=== PATIENT | male | born 1985 | race Caucasian/White ===

== ENCOUNTER 2016-05-04 21:19 | Emergency (ER) | payer MEDICAID ==
[2016-05-04] MEDS ORDERED: ACETAMINOPHEN 325 MG TABLET PO STA (23:42)
[2016-05-04] MEDS ORDERED: DEXAMETHASONE 10 MG/ML VIAL PO STA (23:42)
[2016-05-04] MEDS ORDERED: HYDROcod/ACET 5/325 Prepack 6 PO ONE ×2 (23:42→23:46)
[2016-05-04] MEDS ORDERED: DEXAMETHASONE 10 MG/ML VIAL ONE (23:46)
[2016-05-04] MEDS ORDERED: ACETAMINOPHEN 325 MG TABLET PO ONE (23:47)
== END 2016-05-05 00:11 | disposition home or self-care (01) ==
DX: M25.511 Pain in right shoulder (principal)
CPT/HCPCS: 93005; 93010; 99283; A9270

== ENCOUNTER 2016-07-04 14:03 | Outpatient (CLI) | payer MEDICAID | END 2016-07-04 23:59 | disposition home or self-care (01) | DX: R12 Heartburn (principal) ==

== ENCOUNTER 2016-07-26 17:02 | Outpatient (CLI) | payer MEDICAID ==
--- NOTE | 2016-07-27 09:54 | XRAY Report ---
TWO-VIEW CHEST: 07/26/2016 CLINICAL INDICATION: Chronic cough. COMPARISON: 07/03/2014 FINDINGS: Frontal and lateral views of the chest demonstrate a normal cardiac silhouette. The lungs are clear. No effusion or pneumothorax is present. IMPRESSION: NORMAL CHEST, UNCHANGED. JOB #: [id number] EXT JOB #:[id number]
== END 2016-07-26 17:03 | disposition home or self-care (01) ==
LOC: DI 17:02
PROVIDERS: ATTEND Family Medicine
DX: R05 Cough (principal)
CPT/HCPCS: 71020

== ENCOUNTER 2016-09-20 08:00 | Outpatient (CLI) | payer MEDICAID ==
[2016-09-20 19:07] LABS: BILIRUBIN,TOTAL 0.7 mg/dL (0.2-1.0); CALCIUM 9.7 mg/dL (8.5-10.3); CREATININE 0.9 mg/dL (0.6-1.2); TOTAL PROTEIN 7.7 g/dL (6.7-8.2)
== END 2016-09-20 08:01 | disposition home or self-care (01) ==
LOC: LAB.N 08:00
PROVIDERS: ATTEND Family Medicine
DX: K75.9 Inflammatory liver disease, unspecified (principal)
CPT/HCPCS: 36415; 80053

== ENCOUNTER 2016-09-28 20:03 | Outpatient (CLI) | payer MEDICAID ==
--- NOTE | 2016-09-29 12:17 | Ultrasound Report ---
RIGHT UPPER QUADRANT ULTRASOUND: 09/28/2016 CLINICAL INDICATION: Abnormal liver enzymes. TECHNIQUE: Real-time scanning was performed with traveling sales representative static images obtained. FINDINGS: The liver measures 20.3 cm. Hepatic echogenicity is diffusely increased. No focal parenc hymal lesion or intrahepatic biliary dilatation is seen. The common bile duct measures 3 mm. The ga llbladder is normal. The right kidney measures 12.7 cm, and demonstrates no hydronephrosis. No free fluid is seen. IMPRESSION: ECHOGENIC LIVER, COMPATIBLE WITH FATTY INFILTRATION. NO EVIDENCE OF CHOLELITHIASIS OR B ILIARY OBSTRUCTION. JOB #: [id number] EXT JOB #:[id number]
== END 2016-09-28 20:04 | disposition home or self-care (01) ==
LOC: DI 20:03
PROVIDERS: ATTEND Family Medicine
DX: R74.0 Nonspecific elevation of levels of transaminase and lactic acid dehydrogenase [LDH] (principal)
CPT/HCPCS: 76705

== ENCOUNTER 2017-06-06 14:55 | Outpatient (CLI) | payer MEDICAID ==
[2017-06-06 19:40] LABS: ALBUMIN 3.8 g/dL (3.2-5.5); BILIRUBIN,TOTAL 0.5 mg/dL (0.2-1.0); CALCIUM 9.5 mg/dL (8.5-10.3); CREATININE 0.7 mg/dL (0.6-1.2); TOTAL PROTEIN 7.7 g/dL (6.7-8.2)
[2017-06-07 13:43] LABS: HEPATITIS B SURFACE ANTIGEN NON-REACTIVE (NON-REACTIVE)
[2017-06-07 15:37] LABS: HEPATITIS C ANTIBODY NON-REACTIVE (NON-REACTIVE)
== END 2017-06-06 14:56 | disposition home or self-care (01) ==
LOC: LAB.N 14:55
PROVIDERS: ATTEND Family Medicine
DX: K76.0 Fatty (change of) liver, not elsewhere classified (principal); R74.0 Nonspecific elevation of levels of transaminase and lactic acid dehydrogenase [LDH]
CPT/HCPCS: 36415; 80053; 82728; 83540; 84466; 86317; 86704; 86709; 86803; 87340

== ENCOUNTER 2017-07-30 08:00 | Outpatient (CLI) | payer MEDICAID ==
[2017-07-30 13:13] LABS: CALCIUM 9.2 mg/dL (8.5-10.3)
[2017-07-30 13:29] LABS: HB2 TOTAL 16.1 g/dL; HEMOGLOBIN A1C 0.73 g/dL; HEMOGLOBIN A1C % 6.3 % (4.6-6.2)
== END 2017-07-30 08:01 ==
LOC: LAB.N 08:00
PROVIDERS: ATTEND Family Medicine
DX: E11.9 Type 2 diabetes mellitus without complications (principal)
CPT/HCPCS: 36415; 80048; 83036

== ENCOUNTER 2017-09-05 08:00 | Outpatient (CLI) | payer MEDICAID ==
[2017-09-05 12:31] LABS: BASOPHILS % (AUTO) 0.4 %; EOSINOPHILS # (AUTO) 0.2 10^3/uL (0.0-0.7); EOSINOPHILS % (AUTO) 1.9 %; HGB - HEMOGLOBIN 13.7 g/dL (14.0-18.0); LYMPHOCYTES # (AUTO) 2.7 10^3/uL (1.5-3.5); LYMPHOCYTES % (AUTO) 30.9 %; MEAN CORPUSCULAR HEMOGLOBIN 29.2 pg (27.0-31.0); MEAN CORPUSCULAR HGB CONC 33.6 g/dL (32.0-36.0); MEAN PLATELET VOLUME 9.6 fL (7.4-11.4); MONOCYTES # (AUTO) 0.7 10^3/uL (0.0-1.0); MONOCYTES % (AUTO) 8.3 %; NEUTROPHILS # (AUTO) 5.1 10^3/uL (1.5-6.6); NEUTROPHILS % (AUTO) 58.5 %; PLT - PLATELET COUNT 291 10^3/uL (130-450); RED BLOOD COUNT 4.68 10^6/uL (4.70-6.10); RED CELL DISTRIBUTION WIDTH 14.3 % (12.0-15.0); WHITE BLOOD COUNT 8.6 x10^3/uL (4.8-10.8)
[2017-09-05 12:35] LABS: ALBUMIN 3.8 g/dL (3.2-5.5); ALBUMIN/GLOBULIN RATIO 1.1 (1.0-2.2); BILIRUBIN,TOTAL 0.6 mg/dL (0.2-1.0); CALCIUM 9.8 mg/dL (8.5-10.3); CREATININE 0.9 mg/dL (0.6-1.2); TOTAL PROTEIN 7.4 g/dL (6.7-8.2)
== END 2017-09-05 08:01 ==
LOC: LAB.N 08:00
PROVIDERS: ATTEND Family Medicine
DX: K57.32 Diverticulitis of large intestine without perforation or abscess without bleeding (principal); R19.7 Diarrhea, unspecified
CPT/HCPCS: 36415; 80053; 83690; 85025; 85651

== ENCOUNTER 2017-09-06 12:16 | Outpatient (CLI) | payer MEDICAID ==
--- NOTE | 2017-09-06 13:51 | CT Report ---
Procedure Date: 09/06/2017 Accession Number: [id number] / [id number] Procedure: CT - Abdomen/Pelvis W/O CPT Code: FULL RESULT: EXAM: CT ABDOMEN AND PELVIS EXAM DATE: 09/06/2017 12:29 PM. CLINICAL HISTORY: Abdominal pain, diverticulitis, colon, diarrhea. COMPARISONS: Noncontrast CT abdomen and pelvis 09/08/2015. TECHNIQUE: Routine helical CT imaging was performed through the abdomen and pelvis. IV contrast: None. Enteric contrast: No. Reconstructions: Coronal and sagittal. In accordance with CT protocol optimization, one or more of the following dose reduction techniques were utilized for this exam: automated exposure control, adjustment of mA and/or KV based on patient size, or use of iterative reconstructive technique. FINDINGS: Lung Bases: Stable, essentially clear. Liver: Prominent right lobe 20 cm in height as before. No focal abnormality evident. Gallbladder/Bile Ducts: No calcified gallstone, gallbladder wall thickening, or obvious ductal dilatation. Spleen: Mild splenomegaly, 14.4 cm in length compared to 13.8 cm previously. No focal lesion identified. Pancreas: Grossly unremarkable. Adrenal Glands: No nodule. Kidneys: Unremarkable. No hydronephrosis, stones, or focal abnormality identified. Peritoneal Cavity/Bowel: No dilatation or acute findings of the nonopacified bowel. No gross abnormality of terminal ileum. Surgical changes of distal sigmoid with stable modest adjacent fat stranding. Relatively contracted sigmoid and rectosigmoid colon with limited detail. Diverticulosis. No convincing acute diverticulitis. Normal appendix. Small supraumbilical ventral hernia, 2 x 3 x 3.2 cm, contains a tuft of small bowel, without evidence of obstruction. Hernia neck 3 cm. A smaller fat-containing midline ventral hernia more superiorly. Retroperitoneum: Stable subcentimeter aortocaval nodes. No mass or sobeida adenopathy. Pelvic Organs: Moderately contracted bladder and tiny urachal remnant. No focal lesion identified. Normal size prostate. No adenopathy evident. Vasculature: No aneurysm. Bones: Stable. Mild degenerative changes of the spine. IMPRESSION: 1. No acute inflammatory or obstructive process identified. 2. Colonic diverticulosis. No convincing acute diverticulitis. Postsurgical changes of distal sigmoid. Limited detail of the contracted rectosigmoid colon. 3. Small ventral hernias, one of which contains small bowel just above the umbilicus. RADIA
== END 2017-09-06 12:17 | disposition home or self-care (01) ==
LOC: DI 12:16
PROVIDERS: ATTEND Family Medicine
DX: K57.30 Diverticulosis of large intestine without perforation or abscess without bleeding (principal); K43.9 Ventral hernia without obstruction or gangrene
CPT/HCPCS: 74176

== ENCOUNTER 2019-05-07 11:02 | Emergency (ER) | payer MEDICAID ==
[2019-05-07 11:58] LABS: BASOPHILS % (AUTO) 0.2 %; EOSINOPHILS # (AUTO) 0.1 10^3/uL (0.0-0.7); EOSINOPHILS % (AUTO) 1.3 %; HGB - HEMOGLOBIN 15.5 g/dL (14.0-18.0); LYMPHOCYTES # (AUTO) 2.1 10^3/uL (1.5-3.5); LYMPHOCYTES % (AUTO) 25.6 %; MEAN CORPUSCULAR HEMOGLOBIN 29.6 pg (27.0-31.0); MEAN CORPUSCULAR HGB CONC 33.6 g/dL (32.0-36.0); MEAN CORPUSCULAR VOLUME 88.1 fL (80.0-94.0); MEAN PLATELET VOLUME 10.1 fL (7.4-11.4); MONOCYTES # (AUTO) 0.6 10^3/uL (0.0-1.0); MONOCYTES % (AUTO) 7.5 %; NEUTROPHILS # (AUTO) 5.3 10^3/uL (1.5-6.6); NEUTROPHILS % (AUTO) 64.9 %; PLT - PLATELET COUNT 280 10^3/uL (130-450); RED BLOOD COUNT 5.23 10^6/uL (4.70-6.10); RED CELL DISTRIBUTION WIDTH 13.2 % (12.0-15.0); WHITE BLOOD COUNT 8.2 x10^3/uL (4.8-10.8)
[2019-05-07 12:11] LABS: ALBUMIN 4.3 g/dL (3.2-5.5); ALBUMIN/GLOBULIN RATIO 1.1 (1.0-2.2); BILIRUBIN,TOTAL 0.8 mg/dL (0.2-1.0); CALCIUM 9.8 mg/dL (8.5-10.3); TOTAL PROTEIN 8.1 g/dL (6.7-8.2)
[2019-05-07 13:32] LABS: GLUCOSE, URINE (UA) NEGATIVE (NEGATIVE); KETONES,URINE (UA) TRACE mg/dL (NEGATIVE); LEUKOCYTE ESTERASE, URINE NEGATIVE (NEGATIVE); NITRITE,URINE NEGATIVE (NEGATIVE); OCCULT BLOOD,URINE NEGATIVE (NEGATIVE); PROTEIN,URINE TRACE mg/dL (NEGATIVE); UROBILINOGEN,URINE 0.2 (NORMAL) E.U./dL (NORMAL)
--- NOTE | 2019-05-07 13:35 | ED Physician Documentation ---
PD HPI ABD PAIN - Stated complaint Stated Complaint: ABD PX - Chief complaint Chief Complaint: Abd Pain - History obtained from History obtained from: Patient - History of Present Illness Timing - onset: How many months ago (has noted LUQ pain intermittently for 5 months, will have sharp pain mainly when lying on left side, and improved if turns to right. Has it at times with bending or lifting. No pain with breathing. No noted change with eating nor BMs. Has had regular BMs mainly, with some constipation the past several days. Pain today was consistent in same place and not improved with position/ROM.) Timing - duration: Days (current consistent pain today; has had it intermittent for 5 months) Timing - details: Gradual onset, Still present Quality: Cramping, Sharp, Pain Location: LUQ Associated symptoms: Constipation (the past several days). No: Fever, Nausea, Vomiting, Diarrhea Similar symptoms before: Has not had sx before (had had diverticulitis with perforation and colectomy, with colostomy that was then reversed. Has had normal BMs and diet. Just the past few months has had pain as noted above intermittently.), Other (has umbilical hernia that reduces and is not tender) Recently seen: Not recently seen Review of Systems Constitutional: denies: Fever, Chills, Myalgias Nose: denies: Rhinorrhea / runny nose, Congestion Throat: denies: Sore throat Respiratory: denies: Cough GI: reports: Abdominal Pain, Constipation. denies: Nausea, Vomiting, Diarrhea, Bloody / black stool : denies: Dysuria, Frequency, Hematuria Skin: denies: Rash PD PAST MEDICAL HISTORY - Past Medical History Cardiovascular: None, Other Respiratory: None Endocrine/Autoimmune: None GI: Chronic constipation, Diverticulitis, Other : Frequency HEENT: None Psych: Depression, Anxiety Musculoskeletal: None Derm: None Other Past Medical History: Patient reports having "pre diabetes" - Past Surgical History Past Surgical History: Yes General: Bowel surgery, Colonoscopy, Other HEENT: Tonsil/Adenoidectomy - Present Medications Home Medications: Ambulatory Orders Medication Instructions Recorded Confirmed Omeprazole [PriLOSEC] 20 mg PO DAILY PRN 12/05/13 07/03/14 Bupropion HCl [Wellbutrin] 100 mg PO BID 07/01/14 07/03/14 Cholecalciferol (Vitamin D3) 2,000 unit PO DAILY 07/01/14 07/03/14 [Vitamin D] Fluoxetine HCl [Prozac] 20 mg PO DAILY 07/01/14 07/03/14 L.acidoph,Paracasei, B.lactis 1 each PO DAILY 07/01/14 07/03/14 [Probiotic] Multivitamin [Multivitamins] 1 each PO DAILY 07/01/14 07/03/14 Ubidecarenone [Coq-10] 100 mg PO DAILY 07/01/14 07/03/14 Alprazolam [Xanax] 1 tab PO ONCE 07/03/14 07/03/14 Docusate Sodium 100 mg PO DAILY #30 capsule 05/07/19 Naproxen 500 mg PO BID #20 tablet 05/07/19 - Allergies Allergies/Adverse Reactions: Allergies Allergy/AdvReac Type Severity Reaction Status Date / Time banana [Banana] Allergy Severe Swelling Verified 05/07/19 11:13 to mouth amoxicillin [Amoxicillin] Allergy Unknown Unknown Verified 05/07/19 11:13 Penicillins Allergy Unknown Unknown Verified 05/07/19 11:13 ciprofloxacin [From Cipro] AdvReac Intermediate Redness Verified 05/07/19 11:13 ranitidine AdvReac Intermediate Head Verified 05/07/19 11:13 tingling, dizzieness - Social History Does the pt smoke?: No Smoking Status: Never smoker Does the pt drink ETOH?: No Does the pt have substance abuse?: No - Immunizations Immunizations are current?: Yes - POLST Patient has POLST: No PD ED PE NORMAL - Vitals Vital signs reviewed: Yes - General General: Alert and oriented X 3, No acute distress, Well developed/nourished - HEENT HEENT: Pharynx benign - Neck Neck: Supple, no meningeal sign, No adenopathy - Cardiac Cardiac: RRR, No murmur - Respiratory Respiratory: Clear bilaterally - Abdomen Abdomen: Normal bowel sounds, Soft, Non distended, No organomegaly, Other (tender locally LUQ to left mid abd without percusssion nor rebound tenderness. Noted umbilical hernia that is soft and reducible, without tenderness. ) - Male Male : Deferred - Rectal Rectal: Deferred - Back Back: No CVA TTP, No spinal TTP - Derm Derm: Normal color, No rash - Neuro Neuro: Alert and oriented X 3, No motor deficit Results - Vitals Vitals: Vital Signs - 24 hr 05/07/19 05/07/19 13:13 16:32 Temperature 36.5 C Heart Rate 90 84 Respiratory 18 17 Rate Blood Pressure 151/98 H 144/88 H O2 Saturation 97 99 Oxygen O2 Source [With Activity] Room air O2 Source Room air - Labs Labs: Laboratory Tests 05/07/19 05/07/19 05/07/19 11:53 11:53 11:53 WBC 8.2 RBC 5.23 Hgb 15.5 Hct 46.1 MCV 88.1 MCH 29.6 MCHC 33.6 RDW 13.2 Plt Count 280 MPV 10.1 Neut # (Auto) 5.3 Lymph # (Auto) 2.1 Barnes # (Auto) 0.6 Eos # (Auto) 0.1 Baso # (Auto) 0.0 Absolute Nucleated RBC 0.00 Nucleated RBC % 0.0 ESR 9 Sodium 138 Potassium 4.3 Chloride 99 L Carbon Dioxide 27 Anion Gap 12.0 BUN 16 Creatinine 1.0 Estimated GFR (MDRD) 85 L Glucose 145 H Calcium 9.8 Total Bilirubin 0.8 AST 53 H ALT 101 H Alkaline Phosphatase 41 L Total Protein 8.1 Albumin 4.3 Globulin 3.8 Albumin/Globulin Ratio 1.1 Lipase 30 Urine Color Urine Clarity Urine pH Ur Specific [place] Urine Protein Urine Glucose (UA) Urine Ketones Urine Occult Blood Urine Nitrite Urine Bilirubin Urine Urobilinogen Ur Leukocyte Esterase Ur Microscopic Review Urine Culture Comments 05/07/19 13:22 WBC RBC Hgb Hct MCV MCH MCHC RDW Plt Count MPV Neut # (Auto) Lymph # (Auto) Barnes # (Auto) Eos # (Auto) Baso # (Auto) Absolute Nucleated RBC Nucleated RBC % ESR Sodium Potassium Chloride Carbon Dioxide Anion Gap BUN Creatinine Estimated GFR (MDRD) Glucose Calcium Total Bilirubin AST ALT Alkaline Phosphatase Total Protein Albumin Globulin Albumin/Globulin Ratio Lipase Urine Color DARK YELLOW Urine Clarity CLEAR Urine pH 6.0 Ur Specific [place] >=1.030 H Urine Protein TRACE Urine Glucose (UA) NEGATIVE Urine Ketones TRACE Urine Occult Blood NEGATIVE Urine Nitrite NEGATIVE Urine Bilirubin NEGATIVE Urine Urobilinogen 0.2 (NORMAL) Ur Leukocyte Esterase NEGATIVE Ur Microscopic Review NOT INDICATED Urine Culture Comments NOT INDICATED - Rads (name of study) abd CT Radiology: Prelim report reviewed (no acute process), See rad report PD MEDICAL DECISION MAKING - ED course Complexity details: reviewed results (CT appears normal. Consider some adhesions/scar tissue with positional tractioning causing the positional pain over the past few months, and could be steady/enhanced with current constipation. Not sure of other explanation at this time. ), re-evaluated patient, considered differential, d/w patient Departure - Departure Disposition: 01 Home, Self Care Clinical Impression: Left sided abdominal pain Condition: Stable Record reviewed to determine appropriate education?: Yes Instructions: ED Abdominal Pain Unkn Cause Follow-Up: MAVERICK LLANES MD [Primary Care Provider] - Prescriptions: Docusate Sodium 100 mg PO DAILY #30 capsule Naproxen 500 mg PO BID #20 tablet Comments: Stay well-hydrated. Use naproxen anti-inflammatory twice daily for the next 7 to 10 days. Also docusate stool softener twice daily for the first few days and then daily after that for regular bowel movements. Add Tylenol 650 mg every 4-6 hours if needed for pain still. Your labs and CT scan did not show any acute process or obvious answer to the cause of your pain. Considerations would be some adhesions or scar tissue from prior surgery being irritated by movement and potentially by some element of constipation. Recheck if not improved well over the next several days and return sooner if worsening or other symptoms develop Discharge Date/Time: 05/07/19 16:37
[2019-05-07 13:38] LABS: BILIRUBIN,URINE NEGATIVE (NEGATIVE); CLARITY,URINE CLEAR (CLEAR); ICTOTEST,URINE NEGATIVE
[2019-05-07] MEDS ORDERED: IOVERSOL 320 100 ML VIAL IVP ONE ×2 (14:33→16:33)
--- NOTE | 2019-05-07 16:04 | CT Report ---
Reason: left upper abd pain Procedure Date: 05/07/2019 Accession Number: [id number] / [id number] Procedure: CT - Abdomen/Pelvis W CPT Code: Final Report FULL RESULT: EXAM: CT ABDOMEN AND PELVIS EXAM DATE: 05/07/2019 03:43 PM. CLINICAL HISTORY: Left upper quadrant abdominal pain. COMPARISONS: ABDOMEN/PELVIS W/O 09/06/2017 12:29 PM. TECHNIQUE: Routine helical CT imaging was performed through the abdomen and pelvis. IV contrast: 100 mL of OPTIRAY 320. Enteric contrast: No. Reconstructions: Coronal and sagittal. In accordance with CT protocol optimization, one or more of the following dose reduction techniques were utilized for this exam: automated exposure control, adjustment of mA and/or KV based on patient size, or use of iterative reconstructive technique. FINDINGS: Lung Bases: Lung bases are clear and the heart size is normal. No pleural or pericardial effusion. Liver: Unremarkable. Gallbladder/Bile Ducts: Unremarkable. Spleen: Normal. Pancreas: Normal. Adrenal Glands: Normal. Kidneys: Normal. No masses or hydronephrosis. Peritoneal Cavity/Bowel: Surgical anastomotic sutures at the rectosigmoid junction. Colonic diverticulosis without diverticulitis. The remainder of the intra-abdominal gastrointestinal tract is unremarkable. No ascites, free air or adenopathy. The appendix is well visualized and normal. Pelvic Organs: Normal. The bladder and visualized pelvic organs are within normal limits. Vasculature: No aneurysms or other significant abnormality. Bones: Benign bone island in the T8 vertebral body. Mild multilevel thoracic and lumbar spondylosis. Benign bone island in the right acetabulum. Other: Umbilical and supraumbilical ventral hernias containing loops of small bowel and mesenteric fat. No incarceration. IMPRESSION: 1. No acute inflammatory process in the abdomen or pelvis. 2. Status post partial sigmoid colon resection with surgical anastomosis at the rectosigmoid junction. 3. Colonic diverticulosis without diverticulitis. 4. Umbilical and supraumbilical ventral hernias containing loops of small bowel and mesenteric fat. No bowel obstruction or incarceration. RADIA
[2019-05-07] MEDS ORDERED: KETOROLAC 30 MG/ML VIAL IVP STA (16:16)
[2019-05-07] MEDS ORDERED: DOCUSATE SODIUM 100 MG CAPSULE PO STA (16:16)
[2019-05-07 16:34] VITALS: BP 144/88
== END 2019-05-07 16:37 | disposition home or self-care (01) ==
LOC: ED 11:02
DX: R10.9 Unspecified abdominal pain (principal)
CPT/HCPCS: 36415; 74177; 80053; 81003; 83690; 85025; 85651; 96374; 99284; A9270; Q9967; 81001; 87086

== ENCOUNTER 2019-05-22 14:10 | Outpatient (CLI) | payer MEDICAID ==
[2019-05-22 18:50] LABS: BASOPHILS % (AUTO) 0.4 %; EOSINOPHILS # (AUTO) 0.1 10^3/uL (0.0-0.7); EOSINOPHILS % (AUTO) 1.1 %; HGB - HEMOGLOBIN 14.8 g/dL (14.0-18.0); LYMPHOCYTES # (AUTO) 1.8 10^3/uL (1.5-3.5); LYMPHOCYTES % (AUTO) 21.1 %; MEAN CORPUSCULAR HEMOGLOBIN 29.7 pg (27.0-31.0); MEAN CORPUSCULAR VOLUME 89.8 fL (80.0-94.0); MEAN PLATELET VOLUME 10.6 fL (7.4-11.4); MONOCYTES # (AUTO) 0.6 10^3/uL (0.0-1.0); MONOCYTES % (AUTO) 6.5 %; NEUTROPHILS % (AUTO) 70.5 %; PLT - PLATELET COUNT 292 10^3/uL (130-450); RED BLOOD COUNT 4.99 10^6/uL (4.70-6.10); RED CELL DISTRIBUTION WIDTH 13.5 % (12.0-15.0); WHITE BLOOD COUNT 8.6 x10^3/uL (4.8-10.8)
[2019-05-22 19:24] LABS: HB2 TOTAL 15.5 g/dL; HEMOGLOBIN A1C 0.79 g/dL; HEMOGLOBIN A1C % 6.8 % (4.6-6.2)
[2019-05-22 19:26] LABS: ALBUMIN 4.3 g/dL (3.2-5.5); ALBUMIN/GLOBULIN RATIO 1.2 (1.0-2.2); BILIRUBIN,TOTAL 0.9 mg/dL (0.2-1.0); CALCIUM 9.3 mg/dL (8.5-10.3); CREATININE 0.7 mg/dL (0.6-1.2); TOTAL PROTEIN 7.9 g/dL (6.7-8.2)
== END 2019-05-22 23:59 | disposition home or self-care (01) ==
LOC: LAB.N 14:10
PROVIDERS: ATTEND Physician Assistant Medical
DX: R07.9 Chest pain, unspecified (principal); E11.9 Type 2 diabetes mellitus without complications
CPT/HCPCS: 36415; 80053; 82306; 83036; 83880; 84443; 85025

== ENCOUNTER 2019-05-22 14:18 | Outpatient (CLI) | payer MEDICAID ==
--- NOTE | 2019-05-22 16:11 | XRAY Report ---
Reason: CHEST PAIN, ETIOLOGY UNDEFINED Procedure Date: 05/22/2019 Accession Number: [id number] / [id number] Procedure: XRN - Chest 2 View X-Ray CPT Code: 85691 Final Report FULL RESULT: EXAM: CHEST RADIOGRAPHY EXAM DATE: 05/22/2019 02:37 PM. CLINICAL HISTORY: CHEST PAIN, ETIOLOGY UNDEFINED. COMPARISON: CHEST 2 VIEW PA/LAT 07/26/2016 5:06 PM. TECHNIQUE: 2 views. FINDINGS: Lungs/Pleura: No focal opacities evident. No pleural effusion. No pneumothorax. Normal volumes. Mediastinum: Heart and mediastinal contours are unremarkable. Other: None. IMPRESSION: Normal 2-view chest radiography. RADIA
== END 2019-05-22 14:19 | disposition home or self-care (01) ==
LOC: DI.N 14:18
PROVIDERS: ATTEND Physician Assistant Medical
DX: R07.9 Chest pain, unspecified (principal); E11.9 Type 2 diabetes mellitus without complications
CPT/HCPCS: 36415; 71046; 80053; 82306; 83036; 83880; 84443; 85025

== ENCOUNTER 2020-01-21 10:13 | Emergency (ER) | payer MEDICAID ==
--- NOTE | 2020-01-21 10:28 | ED Physician Documentation ---
PD HPI CHEST PAIN - Stated complaint Stated Complaint: CHEST PX - History obtained from History obtained from: Patient - Additional information Additional information: 34-year-old gentleman with history of abdominal surgeries, but no history of heart or lung problems presents with pain that started in his chest last night. It is focal near the upper left side of his breast, nonradiating. Feels like to dull pencils poking him. Its been fairly constant. No shortness of breath, nausea, pedal edema, calf pain, sweats with it. Family history is notable for coronary disease but in elderly people, nobody under the age of 50. Review of Systems Ten Systems: 10 systems reviewed and negative Constitutional: reports: Reviewed and negative Nose: reports: Reviewed and negative Cardiac: reports: Chest pain / pressure. denies: Palpitations Respiratory: denies: Dyspnea, Cough PD PAST MEDICAL HISTORY - Past Medical History Cardiovascular: None, Other Respiratory: None Endocrine/Autoimmune: None GI: Chronic constipation, Diverticulitis, Other : Frequency HEENT: None Psych: Depression, Anxiety Musculoskeletal: None Derm: None - Past Surgical History Past Surgical History: Yes General: Bowel surgery, Colonoscopy, Other HEENT: Tonsil/Adenoidectomy - Present Medications Home Medications: Ambulatory Orders Medication Instructions Recorded Confirmed Omeprazole [PriLOSEC] 20 mg PO DAILY PRN 12/05/13 07/03/14 Bupropion HCl [Wellbutrin] 100 mg PO BID 07/01/14 07/03/14 Cholecalciferol (Vitamin D3) 2,000 unit PO DAILY 07/01/14 07/03/14 [Vitamin D] Fluoxetine HCl [Prozac] 20 mg PO DAILY 07/01/14 07/03/14 L.acidoph,Paracasei, B.lactis 1 each PO DAILY 07/01/14 07/03/14 [Probiotic] Multivitamin [Multivitamins] 1 each PO DAILY 07/01/14 07/03/14 Ubidecarenone [Coq-10] 100 mg PO DAILY 07/01/14 07/03/14 Alprazolam [Xanax] 1 tab PO ONCE 07/03/14 07/03/14 Docusate Sodium 100 mg PO DAILY #30 capsule 05/07/19 Naproxen 500 mg PO BID #20 tablet 05/07/19 - Allergies Allergies/Adverse Reactions: Allergies Allergy/AdvReac Type Severity Reaction Status Date / Time banana [Banana] Allergy Severe Swelling Verified 01/21/20 10:25 to mouth amoxicillin [Amoxicillin] Allergy Unknown Unknown Verified 01/21/20 10:25 Penicillins Allergy Unknown Unknown Verified 01/21/20 10:25 ciprofloxacin [From Cipro] AdvReac Intermediate Redness Verified 01/21/20 10:25 ranitidine AdvReac Intermediate Head Verified 01/21/20 10:25 tingling, dizzieness - Social History Does the pt smoke?: No Smoking Status: Never smoker Does the pt drink ETOH?: No Does the pt have substance abuse?: No - Immunizations Immunizations are current?: Yes - POLST Patient has POLST: No PD ED PE NORMAL - Vitals Vital signs reviewed: Yes (He is tachycardic but he says his heart rate is always fast.) - General General: Alert and oriented X 3, No acute distress - HEENT HEENT: PERRL, EOMI - Neck Neck: Supple, no meningeal sign, No bony TTP - Cardiac Cardiac: Other (Tachycardic but regular without murmur) - Respiratory Respiratory: No respiratory distress, Clear bilaterally - Abdomen Abdomen: Non tender - Back Back: No CVA TTP, No spinal TTP - Derm Derm: Normal color, Warm and dry - Extremities Extremities: No edema, No calf tenderness / cord - Neuro Neuro: Alert and oriented X 3, Normal speech Results - Vitals Vitals: Vital Signs - 24 hr 01/21/20 01/21/20 10:25 10:35 Temperature 36.6 C Heart Rate 114 H Respiratory 15 Rate Blood Pressure 138/88 H Blood Pressure 129/79 [Left] O2 Saturation 100 Oxygen O2 Source [With Activity] Room air O2 Source Room air - EKG (time done) 1018 Rate: Rate (enter#) (120) Rhythm: Sinus tachycardia Jackson: Normal Intervals: Normal NC QRS: Normal Ischemia: Normal ST segments - Labs Labs: Laboratory Tests 01/21/20 01/21/20 01/21/20 11:34 11:34 11:34 WBC 6.8 RBC 5.10 Hgb 15.0 Hct 43.2 MCV 84.7 MCH 29.4 MCHC 34.7 RDW 13.1 Plt Count 229 MPV 10.3 Neut # (Auto) 4.3 Lymph # (Auto) 1.7 [place] # (Auto) 0.6 Eos # (Auto) 0.1 Baso # (Auto) 0.0 Absolute Nucleated RBC 0.00 Nucleated RBC % 0.0 D-Dimer 220.8 Sodium 137 Potassium 4.2 Chloride 102 Carbon Dioxide 24 Anion Gap 11.0 BUN 21 H Creatinine 0.8 Estimated GFR (MDRD) 109 Glucose 255 H Calcium 9.4 Total Bilirubin 0.5 AST 41 ALT 113 H Alkaline Phosphatase 39 L Troponin I High Sens Total Protein 7.4 Albumin 3.8 Globulin 3.6 Albumin/Globulin Ratio 1.1 Lipase 33 01/21/20 11:34 WBC RBC Hgb Hct MCV MCH MCHC RDW Plt Count MPV Neut # (Auto) Lymph # (Auto) [place] # (Auto) Eos # (Auto) Baso # (Auto) Absolute Nucleated RBC Nucleated RBC % D-Dimer Sodium Potassium Chloride Carbon Dioxide Anion Gap BUN Creatinine Estimated GFR (MDRD) Glucose Calcium Total Bilirubin AST ALT Alkaline Phosphatase Troponin I High Sens 2.4 Total Protein Albumin Globulin Albumin/Globulin Ratio Lipase PD MEDICAL DECISION MAKING - ED course ED course: Heart score 1, very mild elevation in liver enzymes which is not new, presume fatty liver based on body habitus. Departure - Departure Disposition: 01 Home, Self Care Clinical Impression: Atypical chest pain Condition: Good Record reviewed to determine appropriate education?: Yes Instructions: ED Chest Pain NonCardiac Comments: Call your doctor to arrange a follow-up appointment, make the next available appointment. In the interim, return anytime if worse or if new symptoms develop.
--- NOTE | 2020-01-21 10:41 | XRAY Report ---
PROCEDURE: Chest 1 View X-Ray INDICATIONS: Chest Pain TECHNIQUE: One view of the chest was acquired. COMPARISON: 05/22/2019 FINDINGS: Surgical changes and devices: None. Lungs and pleura: No pleural effusions or pneumothorax. Lungs are clear. Mediastinum: Mediastinal contours appear normal. Heart size is normal. Bones and chest wall: No suspicious bony lesions. Overlying soft tissues appear unremarkable. IMPRESSION: No acute cardiopulmonary disease process. Reviewed by: Linnea West MD, PhD on 01/21/2020 10:39 AM [facility] Approved by: Linnea West MD, PhD on 01/21/2020 10:39 AM [facility] Station ID: [id number]
[2020-01-21 11:44] LABS: BASOPHILS % (AUTO) 0.3 %; EOSINOPHILS # (AUTO) 0.1 10^3/uL (0.0-0.7); EOSINOPHILS % (AUTO) 1.3 %; LYMPHOCYTES # (AUTO) 1.7 10^3/uL (1.5-3.5); MEAN CORPUSCULAR HEMOGLOBIN 29.4 pg (27.0-31.0); MEAN CORPUSCULAR HGB CONC 34.7 g/dL (32.0-36.0); MEAN CORPUSCULAR VOLUME 84.7 fL (80.0-94.0); MEAN PLATELET VOLUME 10.3 fL (7.4-11.4); MONOCYTES # (AUTO) 0.6 10^3/uL (0.0-1.0); MONOCYTES % (AUTO) 9.3 %; NEUTROPHILS # (AUTO) 4.3 10^3/uL (1.5-6.6); NEUTROPHILS % (AUTO) 63.7 %; PLT - PLATELET COUNT 229 10^3/uL (130-450); RED CELL DISTRIBUTION WIDTH 13.1 % (12.0-15.0); WHITE BLOOD COUNT 6.8 x10^3/uL (4.8-10.8)
[2020-01-21 11:54] LABS: ALBUMIN 3.8 g/dL (3.2-5.5); ALBUMIN/GLOBULIN RATIO 1.1 (1.0-2.2); BILIRUBIN,TOTAL 0.5 mg/dL (0.2-1.0); CALCIUM 9.4 mg/dL (8.5-10.3); CREATININE 0.8 mg/dL (0.6-1.2); TOTAL PROTEIN 7.4 g/dL (6.7-8.2)
[2020-01-21 12:09] VITALS: BP 130/84
== END 2020-01-21 12:17 | disposition home or self-care (01) ==
LOC: ED 10:13
DX: R07.89 Other chest pain (principal); R00.0 Tachycardia, unspecified; Z82.49 Family history of ischemic heart disease and other diseases of the circulatory system; R74.8 Abnormal levels of other serum enzymes
CPT/HCPCS: 36415; 71045; 80053; 83690; 84484; 85025; 85379; 93005; 99284; 99285

== ENCOUNTER 2021-03-30 18:57 | Emergency (ER) | payer MEDICAID ==
[2021-03-30 19:40] LABS: BASOPHILS % (AUTO) 0.3 %; EOSINOPHILS # (AUTO) 0.1 10^3/uL (0.0-0.7); EOSINOPHILS % (AUTO) 1.2 %; HCT - HEMATOCRIT 43.3 % (42.0-52.0); HGB - HEMOGLOBIN 14.9 g/dL (14.0-18.0); LYMPHOCYTES # (AUTO) 1.8 10^3/uL (1.5-3.5); LYMPHOCYTES % (AUTO) 26.7 %; MEAN CORPUSCULAR HEMOGLOBIN 29.9 pg (27.0-31.0); MEAN CORPUSCULAR HGB CONC 34.4 g/dL (32.0-36.0); MEAN CORPUSCULAR VOLUME 86.8 fL (80.0-94.0); MEAN PLATELET VOLUME 10.3 fL (7.4-11.4); MONOCYTES # (AUTO) 0.8 10^3/uL (0.0-1.0); MONOCYTES % (AUTO) 11.1 %; NEUTROPHILS # (AUTO) 4.2 10^3/uL (1.5-6.6); NEUTROPHILS % (AUTO) 60.6 %; PLT - PLATELET COUNT 252 10^3/uL (130-450); RED BLOOD COUNT 4.99 10^6/uL (4.70-6.10); RED CELL DISTRIBUTION WIDTH 12.8 % (12.0-15.0); WHITE BLOOD COUNT 6.9 x10^3/uL (4.8-10.8)
[2021-03-30 19:50] LABS: ALBUMIN 3.9 g/dL (3.2-5.5); ALBUMIN/GLOBULIN RATIO 1.1 (1.0-2.2); BILIRUBIN,TOTAL 0.5 mg/dL (0.2-1.0); CALCIUM 9.2 mg/dL (8.5-10.3); POTASSIUM 4.1 mmol/L (3.5-5.0); TOTAL PROTEIN 7.4 g/dL (6.7-8.2)
[2021-03-30 20:21] LABS: BILIRUBIN,URINE NEGATIVE (NEGATIVE); GLUCOSE, URINE (UA) >=1000 mg/dL (NEGATIVE); KETONES,URINE (UA) TRACE mg/dL (NEGATIVE); LEUKOCYTE ESTERASE, URINE NEGATIVE (NEGATIVE); NITRITE,URINE NEGATIVE (NEGATIVE); OCCULT BLOOD,URINE NEGATIVE (NEGATIVE); PROTEIN,URINE NEGATIVE (NEGATIVE); UROBILINOGEN,URINE 0.2 (NORMAL) E.U./dL (NORMAL)
[2021-03-30 20:22] VITALS: BP 159/88
--- NOTE | 2021-03-30 20:33 | ED Physician Documentation ---
History of Present Illness - Stated complaint Stated Complaint: ABD/TORSO PAIN - Chief complaint Chief Complaint: Abd Pain - Additonal information Additional information: 35-year-old male presents emergency department for evaluation of 3 to 4 days upper abdominal pain as well as left-sided belly pain. He does endorse some early CAD as well as bloating. States that the pain is better when he compresses his stomach. Worse when he lays flat at night. No nausea, vomiting, fevers or diarrhea. No bloody stools. He does have a history of ruptured diverticulitis requiring operative intervention a number of years ago. He reports himself as being prediabetic. Was previously taking metformin but stopped taking it as he felt it made his blood sugars too low. Also has been diagnosed with Velásquez. Was taking milk thistle which she felt made his symptoms better. Was also previously diagnosed with gastritis but stopped taking Prilosec. Review of Systems Constitutional: denies: Fever, Chills Eyes: reports: Reviewed and negative Nose: reports: Reviewed and negative Throat: reports: Reviewed and negative Cardiac: reports: Reviewed and negative Respiratory: reports: Reviewed and negative GI: reports: Abdominal Pain. denies: Nausea, Vomiting, Constipation, Diarrhea, Hematemesis : reports: Reviewed and negative Skin: reports: Reviewed and negative Musculoskeletal: reports: Reviewed and negative PD PAST MEDICAL HISTORY - Past Medical History Past Medical History: Yes Cardiovascular: None, Other Respiratory: None Endocrine/Autoimmune: None GI: Chronic constipation, Diverticulitis, Other : Frequency HEENT: None Psych: Depression, Anxiety Musculoskeletal: None Derm: None - Past Surgical History Past Surgical History: Yes General: Bowel surgery, Colonoscopy, Other HEENT: Tonsil/Adenoidectomy - Present Medications Home Medications: Ambulatory Orders Medication Instructions Recorded Confirmed Omeprazole [PriLOSEC] 20 mg PO DAILY PRN 12/05/13 07/03/14 Bupropion HCl [Wellbutrin] 100 mg PO BID 07/01/14 07/03/14 Cholecalciferol (Vitamin D3) 2,000 unit PO DAILY 07/01/14 07/03/14 [Vitamin D] Fluoxetine HCl [Prozac] 20 mg PO DAILY 07/01/14 07/03/14 L.acidoph,Paracasei, B.lactis 1 each PO DAILY 07/01/14 07/03/14 [Probiotic] Multivitamin [Multivitamins] 1 each PO DAILY 07/01/14 07/03/14 Ubidecarenone [Coq-10] 100 mg PO DAILY 07/01/14 07/03/14 ALPRAZolam [Xanax] 1 tab PO ONCE 07/03/14 07/03/14 Docusate Sodium 100 mg PO DAILY #30 capsule 05/07/19 Naproxen 500 mg PO BID #20 tablet 05/07/19 - Allergies Allergies/Adverse Reactions: Allergies Allergy/AdvReac Type Severity Reaction Status Date / Time banana [Banana] Allergy Severe Swelling Verified 03/30/21 19:08 to mouth amoxicillin [Amoxicillin] Allergy Unknown Unknown Verified 03/30/21 19:08 Penicillins Allergy Unknown Unknown Verified 03/30/21 19:08 ciprofloxacin [From Cipro] AdvReac Intermediate Redness Verified 03/30/21 19:08 ranitidine AdvReac Intermediate Head Verified 03/30/21 19:08 tingling, dizzieness - Social History Does the pt smoke?: No Smoking Status: Never smoker Does the pt drink ETOH?: No Does the pt have substance abuse?: No - Immunizations Immunizations are current?: Yes - POLST Patient has POLST: No PD ED PE NORMAL - General General: Alert and oriented X 3, No acute distress, Other (obese) - HEENT HEENT: Atraumatic, Moist mucous membranes - Neck Neck: Supple, no meningeal sign, No adenopathy - Cardiac Cardiac: RRR, No murmur, No gallop, Strong equal pulses - Respiratory Respiratory: No respiratory distress, Clear bilaterally - Abdomen Abdomen: Normal bowel sounds, Soft. No: Non tender (Epigastric and left lower quadrant abdominal tenderness without guarding or rebound.) - Back Back: No CVA TTP, No spinal TTP - Derm Derm: Normal color, Warm and dry - Extremities Extremities: No deformity, No tenderness to palpate, Normal ROM s pain - Neuro Neuro: Alert and oriented X 3 Eye Opening: Spontaneous Motor: Obeys Commands Verbal: Oriented GCS Score: 15 Results - Vitals Vitals: Vital Signs - 24 hr 03/30/21 03/30/21 19:04 20:22 Temperature 36.2 C L Heart Rate 105 H 98 Respiratory 16 20 Rate Blood Pressure 148/95 H 159/88 H O2 Saturation 97 99 Oxygen O2 Source [With Activity] Room air O2 Source Room air - Labs Labs: Laboratory Tests 03/30/21 03/30/21 03/30/21 19:32 19:32 20:15 WBC 6.9 RBC 4.99 Hgb 14.9 Hct 43.3 MCV 86.8 MCH 29.9 MCHC 34.4 RDW 12.8 Plt Count 252 MPV 10.3 Neut # (Auto) 4.2 Lymph # (Auto) 1.8 [facility] # (Auto) 0.8 Eos # (Auto) 0.1 Baso # (Auto) 0.0 Absolute Nucleated RBC 0.00 Nucleated RBC % 0.0 Sodium 134 L Potassium 4.1 Chloride 99 L Carbon Dioxide 26 Anion Gap 9.0 BUN 17 Creatinine 1.0 Estimated GFR (MDRD) 84 L Glucose 248 H Calcium 9.2 Total Bilirubin 0.5 AST 20 ALT 39 Alkaline Phosphatase 40 L Total Protein 7.4 Albumin 3.9 Globulin 3.5 Albumin/Globulin Ratio 1.1 Lipase 38 Urine Color YELLOW Urine Clarity CLEAR Urine pH 6.0 Ur Specific [place] 1.020 Urine Protein NEGATIVE Urine Glucose (UA) >=1000 H Urine Ketones TRACE Urine Occult Blood NEGATIVE Urine Nitrite NEGATIVE Urine Bilirubin NEGATIVE Urine Urobilinogen 0.2 (NORMAL) Ur Leukocyte Esterase NEGATIVE Ur Microscopic Review NOT INDICATED Urine Culture Comments NOT INDICATED - Rads (name of study) CT abd Radiology: Final report received (Fat and small bowel containing right periumbilical ventral hernia without evidence for incarceration/strangulation within the hernia sac or obstruction proximally. Colonic diverticulosis without acute diverticulitis.) PD MEDICAL DECISION MAKING - ED course Complexity details: reviewed results, re-evaluated patient, considered differential, d/w patient ED course: 35-year-old male presents emergency department with 3 days of abdominal discomfort mostly in the epigastric and left side. Worse when laying supine. No fevers or vomiting. He does have a history of diverticulitis with perforation. Symptoms today felt similar to that in the past. Screening labs were without acute worrisome findings, With the exception of an elevated blood glucose. Patient reports that he stopped taking the metformin about a year ago as he did not like the way it made him feel. He does have follow-up next week to reestablish with his primary care doctor. He is advised to have A1c screening completed. CT of the abdomen redemonstrated a ventral hernia without findings of obstruction. There was diverticulosis without diverticulitis. Patient is advised to resume taking the Protonix as I suspect a mild gastritis with associated symptoms. He does have follow-up with his primary next week. Emergent return precautions were discussed for fevers, sudden severe abdominal pain black or bloody stools. Departure - Departure Disposition: 01 Home, Self Care Clinical Impression: Hyperglycemia Abdominal pain Qualifiers: Abdominal location: epigastric Qualified Code(s): R10.13 - Epigastric pain Ventral hernia Qualifiers: Obstruction and gangrene presence: without obstruction or gangrene Qualified Code(s): K43.9 - Ventral hernia without obstruction or gangrene Condition: Stable Record reviewed to determine appropriate education?: Yes Follow-Up: MAREN LEHMAN ARNP [Primary Care Provider] - Comments: Dejah you are seen in the emergency department today for a few days of abdominal discomfort. The screening labs do not show any worrisome abnormalities with the exception of a markedly elevated blood sugar. It was 248. I suspected that you have transition from prediabetes into diabetes. Because you had discomfort taking the metformin I suggest you follow-up with your doctor next week as already scheduled to discuss longer-term management and further testing for your elevated sugars. The CT of your abdomen did show a ventral hernia as well as diverticulosis but there were no other worrisome findings today. I do recommend that you resume taking the Protonix as acid reflux or gastritis can cause abdominal symptoms especially in people who are developing diabetes. If at any point you develop fevers, have uncontrolled vomiting, black or bloody stools please return immediately to the ER for a second evaluation.
[2021-03-30] MEDS ORDERED: iohexoL-300 100 ML VIAL ONE (20:38)
[2021-03-30 20:49] LABS: CLARITY,URINE CLEAR (CLEAR)
[2021-03-30] MEDS ORDERED: iohexoL-300 100 ML VIAL IVP ONE (21:06)
--- NOTE | 2021-03-30 21:25 | CT Report ---
PROCEDURE: Abdomen/Pelvis W INDICATIONS: abd psin CONTRAST: IV CONTRAST: Isovue 300 ml: 100 PO CONTRAST: *NO PO CONTRAST TECHNIQUE: After the administration of weight appropriate dose of intravenous contrast, 5 mm thick sections acqu ired from the diaphragms to the symphysis. 5 mm thick coronal and sagittal reformats were acquired. For radiation dose reduction, the following was used: automated exposure control, adjustment of mA and/or kV according to patient size. COMPARISON: 05/07/2019 FINDINGS: Image quality: Excellent. ABDOMEN: Lung bases: Lung bases are clear. Heart size is normal. Solid organs: Liver and spleen are normal in size and enhancement. Gallbladder is unremarkable. Bi liary system is non dilated. Pancreas enhances normally. No adrenal nodules. Kidneys demonstrate n ormal size and enhancement, without hydronephrosis. Peritoneum and bowel: Bowel loops demonstrate normal wall thickness and caliber. No free fluid or a ir. Colonic diverticulosis without acute diverticulitis. Stable posterior changes from prior distal colonic resection with surgical anastomotic suture line noted at the rectosigmoid junction. Nodes and vessels: No retroperitoneal or mesenteric adenopathy by size criteria. Aorta and inferior vena cava are normal in size. Miscellaneous: Redemonstration of right periumbilical ventral hernia containing fat and segment of sm all bowel. No evidence for obstruction proximally. No evidence for stranding or lesion/incarceration within the hernia sac. PELVIS: Genitourinary: Bladder wall thickness is normal. Miscellaneous: No inguinal hernias or adenopathy. Bones: No suspicious bony lesions. No acute vertebral body compression fractures. IMPRESSION: 1. CT abdomen and pelvis without acute abnormalities. 2. Redemonstration of fat and small bowel containing right periumbilical ventral hernia without evide nce for incarceration/strangulation within the hernia sac or obstruction proximally. 3. Colonic diverticulosis without acute diverticulitis. Other chronic findings as above. Reviewed by: Michelet Carmona MD on 03/30/2021 9:23 PM PST Approved by: Michelet Carmona MD on 03/30/2021 9:23 PM PST Station ID: [id number]
== END 2021-03-30 22:11 | disposition home or self-care (01) ==
LOC: ED 18:57
DX: R10.13 Epigastric pain (principal); K43.9 Ventral hernia without obstruction or gangrene; K57.30 Diverticulosis of large intestine without perforation or abscess without bleeding; Z87.19 Personal history of other diseases of the digestive system; R73.9 Hyperglycemia, unspecified
CPT/HCPCS: 36415; 74177; 80053; 81003; 83690; 85025; 99284; Q9967; 81001; 87086

== ENCOUNTER 2021-04-06 11:05 | Outpatient (CLI) | payer MEDICAID ==
[2021-04-06 18:28] LABS: BASOPHILS % (AUTO) 0.3 %; EOSINOPHILS # (AUTO) 0.1 10^3/uL (0.0-0.7); EOSINOPHILS % (AUTO) 0.9 %; HCT - HEMATOCRIT 46.5 % (42.0-52.0); HGB - HEMOGLOBIN 15.6 g/dL (14.0-18.0); LYMPHOCYTES # (AUTO) 2.3 10^3/uL (1.5-3.5); MEAN CORPUSCULAR HEMOGLOBIN 29.4 pg (27.0-31.0); MEAN CORPUSCULAR HGB CONC 33.5 g/dL (32.0-36.0); MEAN CORPUSCULAR VOLUME 87.7 fL (80.0-94.0); MEAN PLATELET VOLUME 10.8 fL (7.4-11.4); MONOCYTES # (AUTO) 0.7 10^3/uL (0.0-1.0); MONOCYTES % (AUTO) 8.3 %; NEUTROPHILS # (AUTO) 5.4 10^3/uL (1.5-6.6); NEUTROPHILS % (AUTO) 63.3 %; PLT - PLATELET COUNT 270 10^3/uL (130-450); WHITE BLOOD COUNT 8.6 x10^3/uL (4.8-10.8)
[2021-04-06 18:55] LABS: ALBUMIN/GLOBULIN RATIO 1.1 (1.0-2.2); ALKALINE PHOSPHATASE 36 IU/L (42-121); ALT ALANINE AMINOTRANSFERASE 42 IU/L (10-60); AST ASPARTATE AMINOTRANSFERASE 30 IU/L (10-42); BILIRUBIN,TOTAL 0.7 mg/dL (0.2-1.0); BUN - BLOOD UREA NITROGEN 19 mg/dL (6-20); CALCIUM 9.3 mg/dL (8.5-10.3); CARBON DIOXIDE - CO2 27 mmol/L (21-32); CHLORIDE 100 mmol/L (101-111); CHOL/HDL RATIO 6.1 (<5.0); CHOLESTEROL 232 mg/dL; CREATININE 0.8 mg/dL (0.6-1.2); GFR - MDRD 109 (>89); GLUCOSE 123 mg/dL (70-100); HDL CHOLESTEROL 38 mg/dL; LDL CHOLESTEROL,CALCULATED 162 mg/dL; LDL/HDL RATIO 4.3 (<3.6); POTASSIUM 4.1 mmol/L (3.5-5.0); SODIUM 135 mmol/L (135-145); TOTAL PROTEIN 7.7 g/dL (6.7-8.2); TRIGLYCERIDES 162 mg/dL; VLDL CHOLESTEROL 32 mg/dL
[2021-04-06 18:57] LABS: THYROID STIMULATING HORMONE 4.76 uIU/mL (0.34-5.60)
[2021-04-07 19:19] LABS: ESTIMATED AVERAGE GLUCOSE 163 mg/dL (70-100); HEMOGLOBIN A1c% 7.3 % (4.27-6.07)
== END 2021-04-06 23:59 | disposition home or self-care (01) ==
LOC: LAB.WCP 11:05
PROVIDERS: ATTEND Physician Assistant
DX: E11.9 Type 2 diabetes mellitus without complications (principal); Z13.9 Encounter for screening, unspecified
CPT/HCPCS: 36415; 80053; 80061; 83036; 83721; 84443; 85025

== ENCOUNTER 2021-07-05 13:46 | Outpatient (CLI) | payer MEDICAID ==
[2021-07-05 17:57] LABS: ALBUMIN 4.2 g/dL (3.2-5.5); ALBUMIN/GLOBULIN RATIO 1.1 (1.0-2.2); BILIRUBIN,TOTAL 0.9 mg/dL (0.2-1.0); CALCIUM 9.6 mg/dL (8.5-10.3); CREATININE 0.8 mg/dL (0.6-1.2); POTASSIUM 4.5 mmol/L (3.5-5.0); TOTAL PROTEIN 7.9 g/dL (6.7-8.2)
[2021-07-05 18:04] LABS: CREATININE,URINE 247.1 mg/dL; MICROALBUM/CREATININE RATIO,UR 34.4 ug/mg (<30.0); MICROALBUMIN,URINE 8.5 mg/dL (0-300.0)
== END 2021-07-05 13:47 | disposition home or self-care (01) ==
LOC: LAB.N 13:46
PROVIDERS: ATTEND Physician Assistant
DX: E11.9 Type 2 diabetes mellitus without complications (principal)
CPT/HCPCS: 36415; 80053; 81599; 82043; 82570; 83036

== ENCOUNTER 2021-07-11 11:26 | Outpatient (CLI) | payer MEDICAID ==
--- NOTE | 2021-07-11 16:52 | Ultrasound Report ---
PROCEDURE: Retroperitoneal INDICATIONS: PAIN EMPTYING BLADDER TECHNIQUE: Real-time scanning was performed of the retroperitoneal organs, with image documentation. COMPARISON: None. FINDINGS: Kidneys: Kidneys are normal in size. Right kidney measures 12.3 cm long; left kidney measures 12.0 cm long. Right renal cortical thickness is 1.3 cm; left renal cortical thickness is 1.7 cm. No kathy d masses, hydronephrosis, or nephrolithiasis. Bladder: Pre-void bladder volume is 541 mL. Post-void residual is 50 mL. Pre-void images demonstra te no intraluminal masses or stones. On pre-void images, both the right and left ureteral jets are n oted with color Doppler interrogation. (Of note, ureteral jets may not be detectable in up to 25% of cases due to insufficient differences in specific gravity between ureteral and bladder urine). Miscellaneous: No free abdominal fluid. IMPRESSION: Normal renal and urinary bladder sonogram Reviewed by: Linnea West MD, PhD on 07/11/2021 4:51 PM PDT Approved by: Linnea West MD, PhD on 07/11/2021 4:51 PM PDT Station ID: [id number]
== END 2021-07-11 11:27 | disposition home or self-care (01) ==
LOC: DI 11:26
PROVIDERS: ATTEND Physician Assistant
DX: R30.9 Painful micturition, unspecified (principal); Z87.448 Personal history of other diseases of urinary system

== ENCOUNTER 2022-11-09 14:58 | Outpatient (CLI) | payer MEDICAID ==
[2022-11-09 18:13] LABS: CALCIUM 9.7 mg/dL (8.5-10.3); CREATININE 0.8 mg/dL (0.6-1.3); POTASSIUM 4.2 mmol/L (3.5-4.5)
[2022-11-09 20:58] LABS: ESTIMATED AVERAGE GLUCOSE 200 mg/dL (70-100); HEMOGLOBIN A1c% 8.6 % (4.27-6.07)
== END 2022-11-09 14:59 | disposition home or self-care (01) ==
LOC: LAB.N 14:58
PROVIDERS: ATTEND Physician Assistant
DX: E11.9 Type 2 diabetes mellitus without complications (principal)
CPT/HCPCS: 36415; 80048; 83036

== ENCOUNTER 2022-11-14 17:18 | Outpatient (CLI) | payer MEDICAID ==
[2022-11-14 17:34] LABS: BASOPHILS % (AUTO) 0.3 %; EOSINOPHILS # (AUTO) 0.1 10^3/uL (0.0-0.7); HCT - HEMATOCRIT 47.3 % (42.0-52.0); HGB - HEMOGLOBIN 16.1 g/dL (14.0-18.0); LYMPHOCYTES # (AUTO) 1.8 10^3/uL (1.5-3.5); LYMPHOCYTES % (AUTO) 25.1 %; MEAN CORPUSCULAR HEMOGLOBIN 28.9 pg (27.0-31.0); MEAN CORPUSCULAR VOLUME 84.9 fL (80.0-94.0); MEAN PLATELET VOLUME 10.1 fL (7.4-11.4); MONOCYTES # (AUTO) 0.6 10^3/uL (0.0-1.0); MONOCYTES % (AUTO) 7.7 %; NEUTROPHILS # (AUTO) 4.8 10^3/uL (1.5-6.6); NEUTROPHILS % (AUTO) 65.6 %; PLT - PLATELET COUNT 272 10^3/uL (130-450); RED BLOOD COUNT 5.57 10^6/uL (4.70-6.10); RED CELL DISTRIBUTION WIDTH 12.6 % (12.0-15.0); WHITE BLOOD COUNT 7.2 x10^3/uL (4.8-10.8)
[2022-11-14 17:48] LABS: ALBUMIN 4.4 g/dL (3.2-5.5); ALBUMIN/GLOBULIN RATIO 1.4 (1.0-2.2); BILIRUBIN,TOTAL 0.5 mg/dL (0.2-1.0); CALCIUM 9.9 mg/dL (8.5-10.3); CREATININE 0.8 mg/dL (0.6-1.3); POTASSIUM 4.2 mmol/L (3.5-4.5); TOTAL PROTEIN 7.6 g/dL (6.4-8.9)
[2022-11-14 18:03] LABS: THYROID STIMULATING HORMONE 0.99 uIU/mL (0.34-5.60)
== END 2022-11-14 17:19 | disposition home or self-care (01) ==
LOC: LAB 17:18
PROVIDERS: ATTEND Physician Assistant
DX: R14.0 Abdominal distension (gaseous) (principal)
CPT/HCPCS: 36415; 80053; 82150; 83690; 84443; 85025

== ENCOUNTER 2023-02-12 15:43 | Outpatient (CLI) | payer MEDICAID ==
[2023-02-12 16:24] LABS: BUN - BLOOD UREA NITROGEN 13 mg/dL (6-20); CALCIUM 10.7 mg/dL (8.5-10.3); CARBON DIOXIDE - CO2 30 mmol/L (21-32); CHLORIDE 99 mmol/L (101-111); CHOL/HDL RATIO 6.2 (<5.0); CHOLESTEROL 255 mg/dL; CREATININE 0.8 mg/dL (0.6-1.3); ESTIMATED AVERAGE GLUCOSE 192 mg/dL (70-100); GFR - MDRD 108 (>89); GLUCOSE 180 mg/dL (74-104); HDL CHOLESTEROL 41 mg/dL; HEMOGLOBIN A1c% 8.3 % (4.27-6.07); LDL CHOLESTEROL,CALCULATED 173 mg/dL; LDL/HDL RATIO 4.2 (<3.6); POTASSIUM 4.5 mmol/L (3.5-4.5); SODIUM 138 mmol/L (135-145); TRIGLYCERIDES 206 mg/dL (48-352); VLDL CHOLESTEROL 41 mg/dL
== END 2023-02-12 15:44 | disposition home or self-care (01) ==
LOC: LAB 15:43
PROVIDERS: ATTEND Physician Assistant
DX: E11.65 Type 2 diabetes mellitus with hyperglycemia (principal)
CPT/HCPCS: 36415; 80048; 80061; 83036; 83721

== ENCOUNTER 2023-05-23 15:10 | Outpatient (CLI) | payer MEDICAID ==
[2023-05-23 15:57] LABS: BUN - BLOOD UREA NITROGEN 20 mg/dL (6-20); CALCIUM 10.2 mg/dL (8.5-10.3); CARBON DIOXIDE - CO2 26 mmol/L (21-32); CHLORIDE 99 mmol/L (101-111); CHOL/HDL RATIO 4.5 (<5.0); CHOLESTEROL 172 mg/dL; CREATININE 0.8 mg/dL (0.6-1.3); GFR - MDRD 108 (>89); GLUCOSE 172 mg/dL (74-104); HDL CHOLESTEROL 38 mg/dL; LDL CHOLESTEROL,CALCULATED 89 mg/dL; LDL/HDL RATIO 2.3 (<3.6); POTASSIUM 4.1 mmol/L (3.5-4.5); SODIUM 136 mmol/L (135-145); TRIGLYCERIDES 227 mg/dL (48-352); VLDL CHOLESTEROL 45 mg/dL
[2023-05-23 21:22] LABS: ESTIMATED AVERAGE GLUCOSE 160 mg/dL (70-100); HEMOGLOBIN A1c% 7.2 % (4.27-6.07)
== END 2023-05-23 15:11 | disposition home or self-care (01) ==
LOC: LAB 15:10
PROVIDERS: ATTEND Physician Assistant
DX: E11.65 Type 2 diabetes mellitus with hyperglycemia (principal); E78.5 Hyperlipidemia, unspecified; R53.83 Other fatigue
CPT/HCPCS: 36415; 80048; 80061; 83036; 83721; 84403

== ENCOUNTER 2023-06-04 13:33 | Outpatient (CLI) | payer MEDICAID ==
[2023-06-04] MEDS ORDERED: DIATRIZOATE MEGLU/DIATRIZO SOD 30 ML BOTTLE PO ONE (13:35)
[2023-06-04] MEDS ORDERED: iohexoL-300 100 ML VIAL ONE ×2 (13:35→15:36)
--- NOTE | 2023-06-04 17:15 | CT Report ---
PROCEDURE: Abdomen/Pelvis W INDICATIONS: ABD PAIN AND BLOATING CONTRAST: Omni 300 100ml TECHNIQUE: After the administration of intravenous contrast, a CT scan of the abdomen and pelvis was performed. Images were recorded and evaluated at appropriate window settings. Reformats: coronal and sagittal. F or radiation dose reduction, the following was used: automated exposure control, adjustment of mA and /or kV according to patient size. COMPARISON: CT 03/30/2021. FINDINGS: Image quality: Diagnostic. Lower chest: Unremarkable. Liver: No solid mass. Gallbladder and biliary tree: No radiopaque stones or wall thickening. No biliary dilation. Spleen: 1 cm hypoattenuating lesion, likely benign in isolation. This is minimally increased in size compared with 2021. Pancreas: No pancreatic ductal dilation. Adrenals: No adrenal nodule. Kidneys and ureters: No hydronephrosis. No renal cystic lesion which requires follow up. No solid mas s. Stomach, bowel and peritoneum: No bowel distension. No pathologic free fluid. Diverticulosis without evidence of diverticulitis. Partial colectomy. Lymph nodes: No central or retroperitoneal adenopathy. Vessels: No infrarenal aortic aneurysm. PELVIS Reproductive organs: Unremarkable. Bladder: No abnormal wall thickening, accounting for underdistention. Pelvic lymph nodes: No pelvic adenopathy by size criteria. Bones: No aggressive osseous abnormality. Other: [place] ventral wall hernia containing a short segment of nonobstructed bowel wall. The sac measures 4.7 x 2.3 cm and the neck measures 3.2 cm. IMPRESSION: [place] ventral wall hernia containing nonobstructed small bowel. Colonic diverticulosis without evidence of diverticulitis. Reviewed by: Abram Nguyen MD on 06/04/2023 5:13 PM PDT Approved by: Abram Nguyen MD on 06/04/2023 5:13 PM PDT Station ID: [id number]
[2023-06-04] MEDS: iohexoL-300 100 ML VIAL IVP ONE (18:31)
[2023-06-04] MEDS: DIATRIZOATE MEGLU/DIATRIZO SOD 30 ML BOTTLE PO ONE (18:32)
== END 2023-06-04 13:34 | disposition home or self-care (01) ==
LOC: DI 13:33
PROVIDERS: ATTEND Physician Assistant
DX: K43.9 Ventral hernia without obstruction or gangrene (principal); K57.30 Diverticulosis of large intestine without perforation or abscess without bleeding
CPT/HCPCS: 74177; Q9963; Q9967

== ENCOUNTER 2023-08-20 15:46 | Outpatient (CLI) | payer MEDICAID ==
[2023-08-20 16:02] LABS: BASOPHILS % (AUTO) 0.4 %; EOSINOPHILS # (AUTO) 0.1 10^3/uL (0.0-0.7); EOSINOPHILS % (AUTO) 1.3 %; HCT - HEMATOCRIT 44.1 % (42.0-52.0); LYMPHOCYTES % (AUTO) 28.6 %; MEAN CORPUSCULAR HEMOGLOBIN 29.3 pg (27.0-31.0); MEAN CORPUSCULAR VOLUME 86.1 fL (80.0-94.0); MEAN PLATELET VOLUME 10.4 fL (7.4-11.4); MONOCYTES # (AUTO) 0.5 10^3/uL (0.0-1.0); MONOCYTES % (AUTO) 7.7 %; NEUTROPHILS # (AUTO) 4.3 10^3/uL (1.5-6.6); NEUTROPHILS % (AUTO) 61.7 %; PLT - PLATELET COUNT 279 10^3/uL (130-450); RED BLOOD COUNT 5.12 10^6/uL (4.70-6.10); RED CELL DISTRIBUTION WIDTH 12.6 % (12.0-15.0)
[2023-08-20 16:09] LABS: CREATININE,URINE 287.2 mg/dL; MICROALBUM/CREATININE RATIO,UR 68.2 ug/mg (<30.0); MICROALBUMIN,URINE 19.6 mg/dL
[2023-08-20 16:18] LABS: ALBUMIN 4.3 g/dL (3.2-5.5); ALBUMIN/GLOBULIN RATIO 1.4 (1.0-2.2); ALKALINE PHOSPHATASE 48 IU/L (42-121); ALT ALANINE AMINOTRANSFERASE 67 IU/L (10-60); AST ASPARTATE AMINOTRANSFERASE 38 IU/L (10-42); BILIRUBIN,TOTAL 0.6 mg/dL (0.2-1.0); BUN - BLOOD UREA NITROGEN 14 mg/dL (6-20); CALCIUM 9.9 mg/dL (8.5-10.3); CARBON DIOXIDE - CO2 27 mmol/L (21-32); CHLORIDE 99 mmol/L (101-111); CHOLESTEROL 171 mg/dL; CREATININE 0.8 mg/dL (0.6-1.3); GFR - MDRD 108 (>89); GLUCOSE 205 mg/dL (74-104); HDL CHOLESTEROL 34 mg/dL; LDL CHOLESTEROL,CALCULATED 103 mg/dL; POTASSIUM 4.2 mmol/L (3.5-4.5); SODIUM 136 mmol/L (135-145); TOTAL PROTEIN 7.3 g/dL (6.4-8.9); TRIGLYCERIDES 168 mg/dL (48-352); VLDL CHOLESTEROL 34 mg/dL
[2023-08-20 19:15] LABS: ESTIMATED AVERAGE GLUCOSE 169 mg/dL (70-100); HEMOGLOBIN A1c% 7.5 % (4.27-6.07)
== END 2023-08-20 15:47 | disposition home or self-care (01) ==
LOC: LAB 15:46
PROVIDERS: ATTEND Physician Assistant
DX: E11.65 Type 2 diabetes mellitus with hyperglycemia (principal); E78.5 Hyperlipidemia, unspecified; R53.83 Other fatigue
CPT/HCPCS: 36415; 80053; 80061; 82043; 82570; 83036; 83721; 84403; 84443; 85025

== ENCOUNTER 2023-08-23 08:00 | Outpatient (CLI) | payer MEDICAID | END 2023-08-23 23:59 | disposition home or self-care (01) | LOC: LAB 08:00 | PROVIDERS: ATTEND Physician Assistant | DX: J39.2 Other diseases of pharynx (principal) | CPT/HCPCS: 87252; 87255 ==

== ENCOUNTER 2023-09-10 08:00 | Outpatient (CLI) | payer MEDICAID | END 2023-09-10 23:59 | disposition home or self-care (01) | LOC: LAB.N 08:00 | PROVIDERS: ATTEND Physician Assistant Medical | DX: L73.2 Hidradenitis suppurativa (principal) | CPT/HCPCS: 87070; 87205 ==

== ENCOUNTER 2023-11-19 09:08 | Outpatient (CLI) | payer MEDICAID ==
[2023-11-19 10:12] LABS: ALBUMIN 4.3 g/dL (3.2-5.5); ALBUMIN/GLOBULIN RATIO 1.4 (1.0-2.2); ALKALINE PHOSPHATASE 44 IU/L (42-121); ALT ALANINE AMINOTRANSFERASE 47 IU/L (10-60); AST ASPARTATE AMINOTRANSFERASE 29 IU/L (10-42); BILIRUBIN,TOTAL 0.4 mg/dL (0.2-1.0); BUN - BLOOD UREA NITROGEN 16 mg/dL (6-20); CALCIUM 9.9 mg/dL (8.5-10.3); CARBON DIOXIDE - CO2 29 mmol/L (21-32); CHLORIDE 101 mmol/L (101-111); CHOL/HDL RATIO 3.8 (<5.0); CHOLESTEROL 143 mg/dL; GFR - MDRD 83 (>89); GLUCOSE 130 mg/dL (74-104); HDL CHOLESTEROL 38 mg/dL; LDL CHOLESTEROL,CALCULATED 74 mg/dL; LDL/HDL RATIO 1.9 (<3.6); POTASSIUM 4.8 mmol/L (3.5-4.5); SODIUM 137 mmol/L (135-145); TOTAL PROTEIN 7.4 g/dL (6.4-8.9); TRIGLYCERIDES 154 mg/dL; VLDL CHOLESTEROL 31 mg/dL
[2023-11-19 10:13] LABS: CREATININE,URINE 265.7 mg/dL; MICROALBUM/CREATININE RATIO,UR 26.3 ug/mg (<30.0)
[2023-11-19 13:58] LABS: ESTIMATED AVERAGE GLUCOSE 140 mg/dL (70-100); HEMOGLOBIN A1c% 6.5 % (4.27-6.07)
== END 2023-11-19 09:09 | disposition home or self-care (01) ==
LOC: LAB 09:08
PROVIDERS: ATTEND Physician Assistant
DX: E11.65 Type 2 diabetes mellitus with hyperglycemia (principal); E78.5 Hyperlipidemia, unspecified; R80.9 Proteinuria, unspecified
CPT/HCPCS: 36415; 80053; 80061; 82043; 82570; 83036; 83721

== ENCOUNTER 2023-12-05 13:58 | Outpatient (CLI) | payer MEDICAID ==
[2023-12-05] MEDS ORDERED: iohexoL-300 100 ML VIAL ONE (14:17)
[2023-12-05] MEDS: iohexoL-300 100 ML VIAL IVP ONE (14:37)
--- NOTE | 2023-12-05 16:24 | CT Report ---
PROCEDURE: Head WO INDICATIONS: HEADACHE TECHNIQUE: Noncontrast 4.5 mm thick angled axial sections acquired from the foramen magnum to the vertex. For r adiation dose reduction, the following was used: automated exposure control, adjustment of mA and/or kV according to patient size. COMPARISON: None. FINDINGS: Image quality: Excellent. CSF spaces: Basal cisterns are patent. No extra-axial fluid collections. Ventricles are normal in size and shape. Brain: No midline shift. No intracranial masses or hemorrhage. Melendrez-white matter interface is norm al. Skull and face: Calvarium and visualized facial bones are intact, without suspicious lesions. Sinuses: Visualized sinuses and mastoids are clear. IMPRESSION: No acute intracranial pathology. Reviewed by: Ross Travis MD on 12/05/2023 4:23 PM PDT Approved by: Ross Travis MD on 12/05/2023 4:23 PM PDT Station ID: [id number]
--- NOTE | 2023-12-06 15:25 | CT Report ---
PROCEDURE: CT Angio Head INDICATIONS: HEADACHE CONTRAST: 80ml [id number] TECHNIQUE: After the administration of intravenous contrast, 1 mm thick sections acquired through the [place]. Postcontrast 4.5 mm thick sections then re-acquired from the foramen magnum to the vertex. 3-dimensional qusaqgn-ryqnsvydr-mrtoruendr (MIP) and/or volume rendering reformats were acquired of t central intracranial vasculature. For radiation dose reduction, the following was used: automate d exposure control, adjustment of mA and/or kV according to patient size. COMPARISON: None. FINDINGS: Image quality: Diagnostic. Anterior circulation: Intracranial internal carotid arteries are normal in size and flow. The flow within the paired anterior cerebral arteries is normal and symmetric. The flow within the middle cer ebral arteries is normal and symmetric. The anterior communicating artery is seen. No aneurysms are seen. Posterior circulation: Visualized portions of the vertebral arteries demonstrate normal caliber, and join to form a normal appearing basilar artery. Flow within the posterior cerebral arteries is norm al and symmetric. No aneurysms are seen. CSF spaces: Ventricles are normal in size and shape. Basal cisterns are patent. No extra-axial flu id collections. Brain: No midline shift. No intracranial bleeds or masses. Melendrez-white matter interface appears int act. Skull and face: Calvarium and facial bones appear intact, without suspicious lesions. Sinuses: Visualized sinuses and mastoids are clear. IMPRESSION: Normal CT angiogram the brain. No evidence of large vessel occlusion, aneurysm or vascular malformati on Reviewed by: Roosevelt Li MD on 12/06/2023 2:23 PM ANA Approved by: Roosevelt Li MD on 12/06/2023 2:23 PM AKDT Station ID: [id number]
== END 2023-12-05 13:59 | disposition home or self-care (01) ==
LOC: DI 13:58
PROVIDERS: ATTEND Physician Assistant
DX: R51.9 Headache, unspecified (principal)
CPT/HCPCS: 70450; 70496; Q9967